=== PATIENT | female | born 1945 | race Caucasian/White ===

== ENCOUNTER → 2019-02-10 | Outpatient (CLI) | payer OTHER ==
[~2019-02-10] MED LIST: BYSTOLIC 5 MG5 M1 PO; FLEXERIL PO; NAPROXEN DELAY500 M1 PO; SAVELLA1 EACH PO; TRAZODONE 150150 M1 PO; VITAMIN D 5050000 I1 PO
--- NOTE | 2019-02-16 22:44 | SLE ---
[facility] [place] [address] [place] [address] POLYSOMNOGRAPHY STUDY Name: ANNIE BALLARD Room #: REG [facility]#: [id number] Admission: 02/10/19 Attend Phys: Robert Medina MD Discharge: Date of : 49 Report #: [id number] THIS REPORT FOR: //name// CC: Robert GILBERT MD DATE OF SERVICE: 02/11/2019 HOME SLEEP STUDY ATTENDING PHYSICIAN: Dr. Dheeraj Gilbert. The patient is a 73-year-old who weighs 258 pounds with a BMI of 41.6. The patient's [place] score was 12. The patient underwent home sleep study performed at [facility]. Total recording time was 452.6 minutes. During the night study, patient had 5 obstructive apneas, no central or mixed apneas and 41 hypopneas. The patient's apnea hypopnea index was 6.9 per hour with a supine index of 4.4 per hour. Nocturnal oximetry study revealed an average oxygen saturation of 90% with the lowest of 80%. 179 minutes were spent in oxygen saturation of less than 90%. Mean heart rate was 68 beats per minute with a maximum of 93 beats per minute. IMPRESSION: 1. Mild sleep apnea-hypopnea syndrome at an AHI of 6.9 per hour. 2. Nocturnal hypoxia secondary to combination of obstructive sleep apnea and suspected hypoventilation. RECOMMENDATIONS: 1. The patient is clinically symptomatic with an [place] score of 12. The patient would benefit from treatment of sleep apnea with either CPAP versus oral appliance. 2. Once patient is optimally treated, then follow up in 4-6 weeks to assess compliance with treatment and to document clinical improvement. 3. Weight loss is strongly advised. 4. Avoid TELECOMMUNICATION OPERATOR depressants. 5. Cautioned regarding driving until patient's hypersomnia is resolved with the above recommendations. <ELECTRONICALLY SIGNED> By: Robert Medina MD 02/16/19 2244 1846 1907 Robert Medina MD /nt
== END ==
LOC: SLEEPLAB 14:20
DX: G47.33 Obstructive sleep apnea (adult) (pediatric) (principal); G47.30 Sleep apnea, unspecified; R09.02 Hypoxemia

== ENCOUNTER → 2019-02-22 | Outpatient (CLI) | payer OTHER | LOC: SJCVC 15:30 | DX: I10 Essential (primary) hypertension (principal); G47.33 Obstructive sleep apnea (adult) (pediatric); Z85.3 Personal history of malignant neoplasm of breast; E78.5 Hyperlipidemia, unspecified; Z90.49 Acquired absence of other specified parts of digestive tract; Z90.710 Acquired absence of both cervix and uterus; Z96.652 Presence of left artificial knee joint; Z79.84 Long term (current) use of oral hypoglycemic drugs; Z79.2 Long term (current) use of antibiotics; Z79.899 Other long term (current) drug therapy; Z88.2 Allergy status to sulfonamides ==

== ENCOUNTER 2019-05-11 12:16 | Emergency (ER) | payer OTHER ==
[~2019-05-11] VITALS: Ht 167.6 cm; Wt 116.1 kg
[2019-05-11 12:53] LABS: URINE BILIRUBIN NEGATIVE (Negative); URINE BLOOD NEGATIVE (Negative); URINE CLARITY CLEAR; URINE COLOR YELLOW; URINE GLUCOSE-RANDOM* NEGATIVE (Negative); URINE KETONES NEGATIVE (Negative); URINE LEUKOCYTES-REFLEX NEGATIVE (Negative); URINE NITRITE-REFLEX NEGATIVE (Negative); URINE PROTEIN (DIPSTICK) NEGATIVE (Negative); URINE SPECIFIC GRAVITY >= 1.030 (1.005-1.035); URINE UROBILINOGEN 0.2 E.U./dl (0.2-1.0)
[2019-05-11 13:14] LABS: ABSOLUTE NEUTROPHILS 12.3 thou/uL (1.4-8.2); BASOPHILS 0.4 % (0.0-2.0); EOSINOPHILS 0.8 % (0.0-3.0); HEMATOCRIT 37.1 % (37.0-47.0); HEMOGLOBIN 12.3 gm/dL (12.0-15.0); MCH 28.3 pg (26.0-34.0); MCHC 33.2 g/dL (28.0-37.0); MCV 85.3 fL (80.0-100.0); MONOCYTES 7.3 % (1.0-8.0); PLATELET COUNT 284 thou/uL (150-400); POLYS 74.5 % (36.0-66.0); RBC 4.35 mil/uL (4.20-5.00); RDW 13.5 % (10.5-14.5); WBC 16.5 thou/uL (4.0-11.0)
[2019-05-11 13:30] LABS: CALCIUM 8.9 mg/dL (8.5-10.1); CREATININE 0.6 mg/dL (0.6-1.0); POTASSIUM 3.9 mmol/L (3.5-5.1)
[2019-05-11 13:35] LABS: TOTAL BILIRUBIN 0.6 mg/dL (<0.1-1.0); TOTAL PROTEIN 7.8 g/dL (6.4-8.2)
[2019-05-11 14:53] VITALS: BP 132/52
[2019-05-11] MEDS ORDERED: BENTYL 10 MG CA10 MG PO (15:03)
[2019-05-11] MEDS ORDERED: AUGMENTIN 875-1 EACH PO (15:03)
[2019-05-11] MEDS ORDERED: AZITHROMYCIN 2250 MG PO (15:03)
== END 2019-05-11 14:53 | disposition home or self-care (01) ==
LOC: ER 12:16
PROVIDERS: Physician Assistant
DX: J18.9 Pneumonia, unspecified organism (principal); K57.32 Diverticulitis of large intestine without perforation or abscess without bleeding; D72.829 Elevated white blood cell count, unspecified; I10 Essential (primary) hypertension; E78.00 Pure hypercholesterolemia, unspecified; M79.7 Fibromyalgia; Z90.710 Acquired absence of both cervix and uterus; Z90.12 Acquired absence of left breast and nipple; Z85.3 Personal history of malignant neoplasm of breast; Z88.2 Allergy status to sulfonamides; Z88.5 Allergy status to narcotic agent; Z88.8 Allergy status to other drugs, medicaments and biological substances

== ENCOUNTER → 2019-05-29 | Outpatient (CLI) | payer OTHER ==
[~2019-05-29] MED LIST changes: +AUGMENTIN 875-1 EACH PO; +AZITHROMYCIN 2250 MG PO; +BENTYL 10 MG CA10 MG PO
== END ==
LOC: RAD 12:38
DX: J69.0 Pneumonitis due to inhalation of food and vomit (principal)

== ENCOUNTER 2019-12-21 12:00 | Emergency (ER) | payer OTHER ==
[~2019-12-21] VITALS: Ht 167.6 cm; Wt 117.9 kg
[2019-12-21 12:41] LABS: ABSOLUTE NEUTROPHILS 8.6 thou/uL (1.4-8.2); BASOPHILS 0.9 % (0.0-2.0); EOSINOPHILS 1.4 % (0.0-3.0); HEMOGLOBIN 12.6 gm/dL (12.0-15.0); LYMPHOCYTES 24.6 % (24.0-44.0); MCH 27.9 pg (26.0-34.0); MCV 84.3 fL (80.0-100.0); MONOCYTES 7.9 % (1.0-8.0); PLATELET COUNT 293 thou/uL (150-400); POLYS 65.2 % (36.0-66.0); RDW 13.6 % (10.5-14.5); WBC 13.2 thou/uL (4.0-11.0)
[2019-12-21 12:55] LABS: CALCIUM 8.5 mg/dL (8.5-10.1); CREATININE 0.8 mg/dL (0.6-1.0); POTASSIUM 4.3 mmol/L (3.5-5.1)
[2019-12-21] MEDS ORDERED: IRBESARTAN300 MG PO (12:58)
[2019-12-21] MEDS ORDERED: LIPITOR 40 MG T40 M1 PO (12:58)
[2019-12-21] MEDS ORDERED: FLUOXETINE HCL40 MG PO (12:59)
[2019-12-21] MEDS ORDERED: NORVASC 2.5 MG2.5 M1 PO (12:59)
[2019-12-21 13:01] LABS: ALBUMIN 3.1 g/dL (3.4-5.0); TOTAL BILIRUBIN 0.3 mg/dL (0.2-1.0); TOTAL PROTEIN 8.4 g/dL (6.4-8.2)
[2019-12-21 14:48] LABS: URINE BILIRUBIN NEGATIVE (Negative); URINE BLOOD NEGATIVE (Negative); URINE CLARITY CLEAR; URINE COLOR YELLOW; URINE GLUCOSE-RANDOM* NEGATIVE (Negative); URINE KETONES NEGATIVE (Negative); URINE LEUKOCYTES-REFLEX NEGATIVE (Negative); URINE NITRITE-REFLEX NEGATIVE (Negative); URINE PROTEIN (DIPSTICK) NEGATIVE (Negative); URINE SPECIFIC GRAVITY >= 1.030 (1.005-1.035); URINE UROBILINOGEN 0.2 E.U./dl (0.2-1.0)
[2019-12-21] MEDS ORDERED: TORADOL 10 MG T10 MG PO (14:50)
[2019-12-21] MEDS ORDERED: CYCLOBENZAPRINE5 MG PO (14:50)
[2019-12-21 15:08] VITALS: BP 136/55
== END 2019-12-21 15:09 | disposition home or self-care (01) ==
LOC: ER 12:00
PROVIDERS: Physician Assistant
DX: M62.830 Muscle spasm of back (principal); R10.9 Unspecified abdominal pain; I10 Essential (primary) hypertension; E78.00 Pure hypercholesterolemia, unspecified; M79.7 Fibromyalgia; Z87.442 Personal history of urinary calculi; Z88.5 Allergy status to narcotic agent; Z90.711 Acquired absence of uterus with remaining cervical stump; Z90.49 Acquired absence of other specified parts of digestive tract; Z85.3 Personal history of malignant neoplasm of breast; Z79.899 Other long term (current) drug therapy; Z91.041 Radiographic dye allergy status; Z88.2 Allergy status to sulfonamides; Z88.4 Allergy status to anesthetic agent

== ENCOUNTER → 2020-06-11 | Outpatient (CLI) | payer OTHER ==
[~2020-06-11] MED LIST changes: +CYCLOBENZAPRINE5 MG PO; +FLUOXETINE HCL40 MG PO; +IRBESARTAN300 MG PO; +LIPITOR 40 MG T40 M1 PO; +NORVASC 2.5 MG2.5 M1 PO; +TORADOL 10 MG T10 MG PO
[2020-06-11 09:23] LABS: ABSOLUTE NEUTROPHILS 7.3 thou/uL (1.4-8.2); BASOPHILS 0.6 % (0.0-2.0); EOSINOPHILS 1.5 % (0.0-3.0); HEMATOCRIT 38.9 % (37.0-47.0); HEMOGLOBIN 12.8 gm/dL (12.0-15.0); MCH 27.7 pg (26.0-34.0); MCHC 32.9 g/dL (28.0-37.0); MCV 84.1 fL (80.0-100.0); MONOCYTES 6.5 % (1.0-8.0); PLATELET COUNT 280 thou/uL (150-400); POLYS 66.4 % (36.0-66.0); RBC 4.62 mil/uL (4.20-5.00)
[2020-06-11 09:26] LABS: CREATININE 0.7 mg/dL (0.6-1.0)
== END ==
LOC: CAT 08:23
PROVIDERS: ATTEND Pediatrics
DX: R06.02 Shortness of breath (principal); K76.0 Fatty (change of) liver, not elsewhere classified; K44.9 Diaphragmatic hernia without obstruction or gangrene; M47.814 Spondylosis without myelopathy or radiculopathy, thoracic region

== ENCOUNTER 2020-09-10 08:52 | Emergency (ER) | payer OTHER ==
[~2020-09-10] VITALS: Ht 167.6 cm; Wt 117.9 kg
[2020-09-10 08:52] VITALS: BP 159/61
== END 2020-09-10 11:30 | disposition home or self-care (01) ==
LOC: ER 08:52
DX: M79.652 Pain in left thigh (principal); M79.7 Fibromyalgia; I10 Essential (primary) hypertension; E78.00 Pure hypercholesterolemia, unspecified; Z90.710 Acquired absence of both cervix and uterus; Z79.899 Other long term (current) drug therapy; Z88.1 Allergy status to other antibiotic agents

== ENCOUNTER → 2021-01-27 | Outpatient (CLI) | payer OTHER | LOC: LAB 10:48 | PROVIDERS: ATTEND Student in an Organized Health Care Education/Training Program | DX: Z01.812 Encounter for preprocedural laboratory examination (principal); Z20.822 Contact with and (suspected) exposure to COVID-19 ==

== ENCOUNTER → 2021-01-29 | Outpatient (CLI) | payer OTHER ==
--- NOTE | 2021-01-31 10:36 | P ---
[facility] [place] [address] [place] [address] PROCEDURE REPORT Name: ANNIE BALLARD Room #: REG [facility]#: [id number] Admission: 01/29/21 Attend Phys: Ascencion Meade Discharge: Date of : 49 Report #: [id number] THIS REPORT FOR: cc: Jose M Wakefield MD, Stanley P. MD McElhinney, Christian C. MD ~ cc: Jose M Wakefield MD DATE OF SERVICE: 01/29/2021 PROCEDURE PERFORMED: Colonoscopy with polypectomies. HISTORY OF PRESENT ILLNESS: The patient is a 75-year-old female with a history of multiple polyps, last colonoscopy in 2018, multiple tubular adenomatous polyps were removed at that time. She is here for routine followup. She denies any symptoms at this time. No family history of colon cancer. DESCRIPTION OF PROCEDURE: The risks and benefits of the procedure were explained to the patient, those risks including but not limited to bleeding, perforation and the risk of sedation. She understood these risks and gave informed consent. Sedation was given using propofol per anesthesia. Next, a digital rectal exam was initially performed, which was normal. Next, using a standard Olympus colonoscope, the scope was placed in the patient's anus and advanced under direct vision to the cecum. The overall prep was good. In the cecum, 2 sessile polyps were noted, 1 was 1 cm, the other was 1.5 cm, both removed by snare cautery in a piecemeal fashion. No other abnormalities noted. The ileocecal valve was normal. In the ascending colon, a 4-mm sessile polyp was noted. This was removed with cold forceps. Transverse colon was normal. In the descending and sigmoid colon, multiple diverticula were noted. No evidence of inflammation. In the sigmoid colon, a 5-mm sessile polyp was noted. This was removed by snare cautery. It was completely removed, but it was not retrieved. In the rectum, a 4-mm sessile polyp was noted. This was removed with cold forceps. On retroflexion, no abnormalities were noted. The scope was then withdrawn and the procedure terminated. The patient tolerated the procedure well. IMPRESSION: 1. Multiple colonic polyps as described above. 2. Multiple diverticula in the descending and sigmoid colon. 3. Otherwise, normal colonoscopy. RECOMMENDATIONS: 1. Await biopsy results. 2. Repeat colonoscopy in 2 years due to multiple polyps. [address] [address] PROCEDURE REPORT Name: ANNIE BALLARD Room #: REG [facility]#: [id number] Admission: 01/29/21 Attend Phys: Ascencion Meade Discharge: Date of : 49 Report #: [id number] Thank you for allowing me to participate in her care. <ELECTRONICALLY SIGNED> By: Ascencion Dorman MD 01/31/21 1036 0903 10 Ascencion Dorman MD /cezar
--- NOTE | 2021-01-31 18:06 | PATH ---
[facility] [address] [address] PATHOLOGY RPT PROCEDURE Name: PAIGE OG Room #: REG [facility].#: [id number] Admission: 01/29/21 Date of : 49 Discharge: Report #: [id number] Path Case #: [id number] [facility] Accession Number: [id number] . 01 Material submitted: . PART A: cecum - CECAL POLYPS X2 PART B: colon - ASCENDING COLON POLYP. Modifiers: ascending PART C: rectum - RECTAL POLYP . 01 Clinical history: . HX OF POLYPS . 01 Diagnosis: A. Colonic mucosa, "cecal polyps x2", biopsy: - Fragments of tubular adenoma. - There is no evidence of high-grade dysplasia or malignancy. . B. Colonic mucosa, "ascending colon polyp" biopsy: - Tubular adenoma. - There is no evidence of high-grade dysplasia or malignancy. . C. Colonic mucosa, "rectal polyp", biopsy: - Fragments of hyperplastic polyps. - There is no evidence of adenomatous change, high-grade dysplasia or malignancy. . (SHA:terry; 01/31/2021) MBYimi 01/31/2021 1059 Local . 01 Electronically signed: . Mark Mccracken MD, Pathologist NPI- [id number] . 01 Gross description: . A. Received in formalin labeled "Paige Og, cecal polyps x2" are multiple luciano-brown soft tissue fragments measuring in aggregate 2.1 x 1.5 x 0.3 cm. The specimen is submitted entirely in A1. . B. Received in formalin labeled "Paige Og, ascending colon polyp" are 2 luciano-brown soft tissue fragments measuring in aggregate 0.4 x 0.2 x 0.1 cm. The specimen is submitted entirely in B1. . C. Received in formalin labeled "Paige Og, rectal polyp" are multiple luciano-brown soft tissue fragments measuring in aggregate 0.5 x 0.3 x 0.1 cm. The specimen is submitted entirely in C1. ([facility]; 01/30/2021) [facility] 01/30/2021 1249 Local . [address] [place] [address] PATHOLOGY RPT PROCEDURE Name: PAIGE OG ALVORDTON [id number] Admission: 01/29/21 Date of : 49 Discharge: Report #: [id number] Path Case #: [id number] Pathologist provided ICD-10: D12.0, D12.2, K62.1 . 01 CPT . 492664, 132004, 534379 Specimen Comment: A courtesy copy of this report has been sent to [phone] Specimen Comment: [phone] Specimen Comment: Report sent to / DR HOLLOWAY Performed at: [facility] [address], [place] [id number] MD Mark Mccracken MD Phone: [phone]
== END | disposition home or self-care (01) ==
LOC: GI
PROVIDERS: ATTEND Specialist
DX: Z12.11 Encounter for screening for malignant neoplasm of colon (principal); Z86.010 Personal history of colon polyps; D12.0 Benign neoplasm of cecum; D12.2 Benign neoplasm of ascending colon; K62.1 Rectal polyp; K57.30 Diverticulosis of large intestine without perforation or abscess without bleeding; Z98.890 Other specified postprocedural states; Z79.899 Other long term (current) drug therapy; Z88.2 Allergy status to sulfonamides; Z91.041 Radiographic dye allergy status
CPT/HCPCS: 62110; 62900

== ENCOUNTER 2021-03-14 10:22 | Emergency (ER) | payer OTHER ==
[~2021-03-14] VITALS: Ht 167.6 cm; Wt 113.4 kg
[2021-03-14] MEDS ORDERED: HYDROCHLOROTH12.5 M2 PO (10:32)
[2021-03-14] MEDS ORDERED: MELOXICAM15 MG PO (10:33)
[2021-03-14] MEDS ORDERED: NEURONTIN 300M300 M2 PO (10:33)
[2021-03-14 11:25] LABS: ABSOLUTE NEUTROPHILS 6.8 thou/uL (1.4-8.2); BASOPHILS 0.5 % (0.0-2.0); EOSINOPHILS 1.3 % (0.0-3.0); HEMATOCRIT 34.4 % (37.0-47.0); HEMOGLOBIN 11.5 gm/dL (12.0-15.0); LYMPHOCYTES 20.1 % (24.0-44.0); MCH 28.4 pg (26.0-34.0); MCHC 33.3 g/dL (28.0-37.0); MCV 85.4 fL (80.0-100.0); MONOCYTES 10.9 % (1.0-8.0); PLATELET COUNT 264 thou/uL (150-400); POLYS 67.2 % (36.0-66.0); RBC 4.03 mil/uL (4.20-5.00); RDW 13.9 % (10.5-14.5); WBC 10.1 thou/uL (4.0-11.0)
[2021-03-14 11:34] LABS: CREATININE 0.7 mg/dL (0.6-1.0); POTASSIUM 3.6 mmol/L (3.5-5.1)
[2021-03-14 11:44] LABS: ALBUMIN 2.5 g/dL (3.4-5.0); TOTAL BILIRUBIN 0.4 mg/dL (0.2-1.0); TOTAL PROTEIN 7.6 g/dL (6.4-8.2)
--- NOTE | 2021-03-14 13:39 | EKG ---
[place] [address] [facility] [place] [address] ELECTROCARDIOGRAM REPORT Name: ANNIE BALLARD DEREK Room #: REG [facility]#: [id number] Admission: 03/14/21 Attend Phys: Discharge: Date of : 49 Report #: [id number] [facility] ED Test Date: 2021-03-14 Test Time: 10:31:01 Pat Name: ANNIE BALLARD Department: Room: Gender: F Orchard Manager: JOSE G : 1945 Requested By: Amita Rendon Order Number: [id number] MD: Gautam Will Measurements Intervals [place] Rate: 60 P: -53 IA: 179 QRS: -31 QRSD: 89 T: 49 QT: 406 QTc: 406 Interpretive Statements Sinus rhythm Left ventricular hypertrophy No previous ECG available for comparison Electronically Signed On 03-14-2021 13:39:46 DIGITAL IMAGER by Gautam Will [email or web address] <ELECTRONICALLY SIGNED> By: Gautam Will MD, [facility] 03/14/21 1339 1031 1031 Gautam Will MD, FACC /EPI
[2021-03-14 13:44] LABS: URINE BILIRUBIN NEGATIVE (Negative); URINE BLOOD 3+ (Negative); URINE CLARITY CLEAR; URINE COLOR YELLOW; URINE GLUCOSE-RANDOM* NEGATIVE (Negative); URINE KETONES NEGATIVE (Negative); URINE LEUKOCYTES-REFLEX NEGATIVE (Negative); URINE NITRITE-REFLEX NEGATIVE (Negative); URINE PROTEIN (DIPSTICK) NEGATIVE (Negative); URINE SPECIFIC GRAVITY 1.025 (1.005-1.035); URINE UROBILINOGEN 0.2 E.U./dl (0.2-1.0)
[2021-03-14 14:00] LABS: CASTS None Seen /LPF (None Seen); MUCUS 4-6 Moderate strn/LPF (None Seen); SQUAMOUS 4-10 Moderate /LPF (0-3)
[2021-03-14 14:01] LABS: BACTERIA-REFLEX 1-9 Few /HPF (None Seen); CRYSTALS None Seen /LPF (None Seen); URINE RBC 1-2 Rare /HPF (NONE SEEN); URINE WBC-REFLEX 0-5 Rare /HPF (0-5)
[2021-03-14 16:33] VITALS: BP 139/52
== END 2021-03-14 16:35 | disposition home or self-care (01) ==
LOC: ER 10:22
PROVIDERS: Emergency Medicine
DX: R55 Syncope and collapse (principal); I10 Essential (primary) hypertension; E78.00 Pure hypercholesterolemia, unspecified; Z90.710 Acquired absence of both cervix and uterus; Z79.899 Other long term (current) drug therapy; Z88.2 Allergy status to sulfonamides; Z91.02 Food additives allergy status

== ENCOUNTER → 2021-03-18 | Outpatient (CLI) | payer OTHER ==
[~2021-03-18] MED LIST changes: +HYDROCHLOROTH12.5 M2 PO; +MELOXICAM15 MG PO; +NEURONTIN 300M300 M2 PO
== END ==
LOC: SJCVC 13:47
PROVIDERS: ATTEND Internal Medicine
DX: R55 Syncope and collapse (principal); I10 Essential (primary) hypertension; D47.2 Monoclonal gammopathy; E78.5 Hyperlipidemia, unspecified; G47.33 Obstructive sleep apnea (adult) (pediatric); Z88.8 Allergy status to other drugs, medicaments and biological substances; Z79.899 Other long term (current) drug therapy